=== PATIENT | female | born 1990 | race Caucasian/White ===

== ENCOUNTER 2016-06-11 21:50 | Inpatient (IN) | payer BC ==
[~2016-06-11] VITALS: Ht 152.4 cm; Wt 56.7 kg
[2016-06-11] MEDS: LACT RINGERS 1,000 ML IV SCH (21:30)
[~2016-06-11 21:50] MED LIST: OXYTOCIN 10 UNITS/ML VIAL IV ONE
[2016-06-11] MEDS ORDERED: FAMOTIDINE 20 MG TAB PO PRN (22:15)
[2016-06-11] MEDS ORDERED: METOCLOPRAMIDE 10 MG/2 ML VIAL IV PUSH PRN (22:15)
[2016-06-11] MEDS ORDERED: PROMETHAZINE 25 MG/ML VIAL IV PRN (22:15)
[2016-06-11] MEDS ORDERED: LIDOCAINE 1% BUFFERED 1 ML SYR INTRADERM PRN (22:15)
[2016-06-11] MEDS ORDERED: LIDOCAINE 1% 30 ML PF INFILTRATE ONE (22:15)
[2016-06-11] MEDS ORDERED: CEFAZOLIN (LD/OB) 100 ML IV PRN (22:15)
[2016-06-11] MEDS ORDERED: ONDANSETRON 4 MG VIAL IV PRN (22:15)
[2016-06-11] MEDS ORDERED: TERBUTALINE 1 MG/ML VIAL SUBQ PRN (22:15)
[2016-06-11] MEDS ORDERED: ALU/MAG/SIM 30 ML UDC PO PRN (22:15)
[2016-06-11] MEDS ORDERED: FAMOTIDINE 20 MG INJ IV PRN (22:15)
[2016-06-11] MEDS ORDERED: ACETAMINOPHEN 325 MG TAB PO PRN (22:15)
[2016-06-11] MEDS ORDERED: MORPHINE 5 MG/1 ML VIAL IV ONE (22:40)
[2016-06-11 22:42] VITALS: Ht 152.4 cm; Wt 56.7 kg
[2016-06-12] VITALS (13 sets, daily range): BP systolic 104–122; RESP 18–20; TEMP 97.5–99.1
[2016-06-12] MEDS ORDERED: LIDOCAINE 1% 30 ML PF ONE (01:26)
[2016-06-12] MEDS ORDERED: ROPIV/FENT 0.2%-2MCG/ML 100 ML EPIDURAL ONE (06:35)
[2016-06-12] MEDS ORDERED: FENTANYL 100 MCG/2 ML AMP ONE (06:36)
[2016-06-12] MEDS ORDERED: LACT RINGERS 500 ML IV ONE (07:00)
[2016-06-12] MEDS ORDERED: LACT RINGERS 500 ML IV PRN (07:00)
[2016-06-12] MEDS ORDERED: SODIUM CHLORIDE 0.9% 500 ML IV PRN (07:00)
[2016-06-12] MEDS ORDERED: ROPIV/FENT 0.2%-2MCG/ML 100 ML EPIDURAL SCH (07:00)
[2016-06-12] MEDS ORDERED: FENTANYL 100 MCG/2 ML AMP EPIDURAL ONE (07:00)
[2016-06-12] MEDS ORDERED: **ONLY ANESTEHSIA MAY ORDER OPIATES WHILE ON EPIDURAL XX SCH (08:00)
[2016-06-12] MEDS ORDERED: MEASLES,MUMPS,RUBELLA VAC SUBQ.VACC ONE (09:15)
[2016-06-12] MEDS ORDERED: MAG HYDROX 30 ML UDC PO PRN (09:15)
[2016-06-12] MEDS ORDERED: ONDANSETRON 4 MG VIAL IV PRN ×3 (09:15→09:25)
[2016-06-12] MEDS ORDERED: OXYTOCIN 15 UNITS/250 ML NS 250 ML IV SCH (09:15)
[2016-06-12] MEDS ORDERED: LACT RINGERS 1,000 ML IV SCH (09:15)
[2016-06-12] MEDS ORDERED: TDaP 0.5 ML VIAL IM.VACC ONE (09:15)
[2016-06-12] MEDS ORDERED: MORPHINE 4 MG/ML SYR IV PRN (09:25)
[2016-06-12] MEDS ORDERED: SALINE FLUSH 10 ML FLUSH PRN (09:25)
[2016-06-12] MEDS ORDERED: OXYCODONE 5 MG TAB PO PRN (09:25)
[2016-06-12] MEDS ORDERED: DIPHENHYDRAMINE 50 MG/ML VIAL IV PRN (09:25)
[2016-06-12] MEDS ORDERED: MORPHINE 2 MG/ML SYR IV PRN ×2 (09:25)
[2016-06-12] MEDS ORDERED: BUTORPHANOL 1 MG/ML VIAL IV PRN (09:25)
[2016-06-12] MEDS ORDERED: PROMETHAZINE 25 MG/ML VIAL IV PRN (09:25)
[2016-06-12] MEDS ORDERED: DILAUDID 1 MG/ML AMP IV PRN (09:25)
[2016-06-12] MEDS ORDERED: MEPERIDINE 25 MG/ML IV PRN (09:25)
[2016-06-12] MEDS ORDERED: NALOXONE 0.4 MG/ML AMP IV PRN (09:25)
[2016-06-12] MEDS: MISOPROSTOL 200 MCG TAB PO SCH ×2 (09:33→14:25)
[2016-06-12] MEDS ORDERED: MISOPROSTOL 100 MCG TAB ONE (09:39)
[2016-06-12] MEDS: OXYTOCIN 15 UNITS/250 ML NS 250 ML IV SCH ×2 (10:16→10:32)
[2016-06-12] MEDS: MORPHINE 4 MG/ML SYR IV PRN ×2 (10:52→11:20)
[2016-06-12] MEDS: KETOROLAC 30 MG/ML VIAL IV SCH ×3 (11:00→23:41)
[2016-06-12] MEDS: MESALAMINE 400 MG PO SCH ×2 (11:37→16:00)
[2016-06-12] MEDS: LACT RINGERS 1,000 ML IV SCH (18:41)
[2016-06-12] MEDS: SALINE FLUSH 10 ML FLUSH SCH (19:34)
[2016-06-12] MEDS: PENTASA 500 MG PO SCH (21:54)
[2016-06-13 01:34] VITALS: BP_SYST 105; RESP 18; TEMP 98.2
[2016-06-13] MEDS: PENTASA 500 MG PO SCH ×4 (05:49→21:21)
[2016-06-13] MEDS: KETOROLAC 30 MG/ML VIAL IV SCH (05:49)
[2016-06-13] MEDS: SODIUM CHLORIDE 0.9% FLUSH BAG 500 ML IV SCH (05:50)
[2016-06-13 05:57] VITALS: BP_SYST 107; RESP 18; TEMP 97.7
[2016-06-13] MEDS: SALINE FLUSH 10 ML FLUSH SCH ×2 (08:00→20:00)
[2016-06-13 09:15] VITALS: BP_SYST 102; RESP 18; TEMP 97.8
[2016-06-13] MEDS: DOCUSATE SOD 100 MG CAP PO SCH (09:37)
[2016-06-13] MEDS: Ibuprofen 600 MG TAB PO SCH ×3 (12:31→23:29)
[2016-06-13 17:49] VITALS: BP_SYST 108; RESP 18; TEMP 98.2
[2016-06-14] MEDS: SODIUM CHLORIDE 0.9% FLUSH BAG 500 ML IV SCH (06:00)
[2016-06-14 06:24] VITALS: BP_SYST 111; TEMP 97.6
[2016-06-14] MEDS: Ibuprofen 600 MG TAB PO SCH ×2 (06:28→11:33)
[2016-06-14] MEDS: SALINE FLUSH 10 ML FLUSH SCH (07:33)
[2016-06-14] MEDS: PENTASA 500 MG PO SCH ×2 (07:41→11:32)
[2016-06-14] MEDS: DOCUSATE SOD 100 MG CAP PO SCH (08:53)
[2016-06-14 09:24] VITALS: BP_SYST 110; TEMP 98
[2016-06-14 11:00] VITALS: BP_SYST 110; RESP 18; TEMP 98
== END 2016-06-14 12:37 | disposition home or self-care (01) | DRG 766 ==
LOC: LDOP 21:50 → LD 22:13 → OB 06-12 11:48
PROVIDERS: ADMIT Obstetrics & Gynecology Reproductive Endocrinology; ATTEND Obstetrics & Gynecology Reproductive Endocrinology
PROC: 10D00Z1 Extraction of Products of Conception, Low, Open Approach (ICD-10-PCS; principal; 2016-06-12)
DX: O76 Abnormality in fetal heart rate and rhythm complicating labor and delivery (principal); Z3A.40 40 weeks gestation of pregnancy; Z37.0 Single live birth
CPT/HCPCS: 82803; 85025; 86850; 86900; 86901; 88307